=== PATIENT | male | born 1940 | race Caucasian/White ===

== ENCOUNTER 2024-03-05 09:36 | Outpatient (AMB) | payer MEDICARE, SELFPAY ==
--- NOTE | 2024-03-05 10:07 | MHC.OFFVIS ---
Vital Signs 03/05/24 10:08 Height 5 ft 3 in Weight 209 lb BMI 37.0 BP 148/88 H Blood Pressure Location Rt brachial Position Sitting Intake Visit Reasons: ENP: Tremors Intake Note: Patient presents for tremors Allergies No Known Allergies Allergy (Verified 03/05/24 10:09) Medication List - Last Reconciled 03/05/24 by Yessica Trejo MD carbidopa-levodopa 25-100 mg (Sinemet) 1 tab PO TID esomeprazole magnesium (Nexium) 20 mg PO DAILY lorazepam 0.5 mg PO DAILY kb-rvc-dcorr acid-lutein 400-250 mcg (Centrum Silver) 1 tab PO DAILY tramadol 50 mg PO DAILY PRN HPI Comments Details: 83y/o Right handed male comes for evaluation of tremors He started noticing tremor sin his right hand about 1 year ago both at rest , posture and action . The tremors were mild initially and intermittent but has worsened in intensity since then . He also has noticed some tremors in his left hand now. He also has difficulty with his hand writing dressing using utensils, showers etc due to poor coordination. His hand writing is smaller. His speech is softer and has drooling. He denies any memory issues. He has some vivid dreams and snoring. He denies depression but has anxiety and has been using lorazepam 0.5 mg qhs to help. 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 Denies nay major head injury He was seen by and started on Primidone but felt weak and dizzy after his first dose PFSH Medical History (Updated 03/05/24 @ 10:53 by Yessica Trejo MD) Hx of cardiac pacemaker Anxiety GERD (gastroesophageal reflux disease) HTN (hypertension) Social History (Updated 03/05/24 @ 10:10 by MARIKA hSi) Alcohol intake: never Patient Tobacco Use Status: Never used Tobacco Physical Exam Vital Signs: Last Vital Signs BP 148/88 H 03/05/24 10:08 BMI result Body Mass Index 37.0 Const General: cooperative, healthy appearing and comfortable Nutritional Appearance: obese Orientation/consciousness: patient oriented x3 Eyes Pupils: Equal, round and reactive pupils present Neck Neck: Yes no meningeal signs Neuro Other: Severely decreased facial expression and blink Speech- moderate hypophonia and dysprosody Rest tremors intermittent moderate right and mild on left Dg postural and action tremors Mild head tremors Fine finger movements - moderately decreased dg R>L Foot taps decreased dg R>L Cog wheel rigidity Right Ue 3 + Left UE 1+ Gait- slow , small steps decreased arm swings dg R>L Mallampatti grade4 General: patient oriented x3, moves all extremities, no meningeal signs and no focal motor deficits Cranial nerves: Yes Facial sensation intact/muscles of mastication intact, Yes Equal, round and reactive pupils present, Yes Bilaterally intact EOM present, Yes Nystagmus not present, Yes Normal facial strength present, Yes Midline tongue present and Yes Symmetric palate elevation present Cognition (Neuro): normal cognition Motor exam (neuro): 5/5 motor strength present throughout Deep tendon reflexes (DTR's): Right triceps reflex intensity grade: 1+, Left triceps reflex intensity grade: 1+, Rt Biceps (C5, C6): 1+, Left biceps reflex intensity grade: 1+, Right brachioradialis reflex intensity grade: 1+, Left brachioradialis reflex intensity grade: 1+, Right patellar reflex intensity grade: 1+ and Left patellar reflex intensity grade: 1+ Coordination: [id number] test normal Assessment & Plan Assessment & Plan (1) Parkinson's disease: Comment: Tremors, bradykinesia, rigidity, gait disturbance Code(s): G20.A1 - Parkinson's disease without dyskinesia, without mention of fluctuations Category: Medical Qualifiers: Dyskinesia presence: without dyskinesia Fluctuating manifestations: without fluctuating manifestations Qualified Code(s): G20.A1 - Parkinson's disease without dyskinesia, without mention of fluctuations Plan Discussed the diagnosis, management and prognosis with the patient I will trial him on carbidopa/levodopa 25/100 1/2 tab tid for 2 weeks and increase to 1 tab tid Home PT for gait training will consider home sleep test Patient has a pacemaker - will consider CT brain F/u 2 mths Medications: New carbidopa-levodopa 25-100 mg (Sinemet) start with 1/2 tab tid for 2 weeks then increase to 1 tab tid 1 tab PO TID 90 tabs 0RF Coding Level of Care Code New Pt Level 4 (40818) Complex EM visit Add On G2211 Diagnoses Parkinson's disease without dyskinesia or fluctuating manifestations G20.A1 Dyskinesia presence: without dyskinesia Fluctuating manifestations: without fluctuating manifestations
[2024-03-05 10:08] VITALS: BP 148/88; BMI 37.0
== END 2024-03-05 10:50 | disposition home or self-care (01) ==
PROVIDERS: PCP Internal Medicine; Visit Provider Psychiatry & Neurology Neurology
DX: G20.A1 Parkinson's disease without dyskinesia, without mention of fluctuations (principal)
CPT/HCPCS: 99204; G2211

== ENCOUNTER → 2024-03-05 09:36 | Outpatient (BNVA) | payer MEDICARE, SELFPAY | PROVIDERS: PCP Internal Medicine; Visit Provider Psychiatry & Neurology Neurology | DX: G20.A1 Parkinson's disease without dyskinesia, without mention of fluctuations (principal) | CPT/HCPCS: 99202 ==

== ENCOUNTER 2024-04-28 09:43 | Outpatient (AMB) | payer MEDICARE, SELFPAY ==
[2024-04-28 09:59] VITALS: BMI 36.0
--- NOTE | 2024-04-28 09:59 | A.OFFVIS_ITS ---
Vital Signs 04/28/24 09:59 Height 5 ft 3 in Weight 203 lb BMI 36.0 Intake Visit Reasons: follow up Tremors Intake Note: Patient presents for tremors Allergies No Known Allergies Allergy (Verified 04/28/24 10:00) Medication List - Last Reconciled 04/28/24 by Yessica Trejo MD carbidopa-levodopa 25-100 mg (Sinemet) 1 tab PO QID esomeprazole magnesium (Nexium) 20 mg PO DAILY lorazepam 0.5 mg PO DAILY ftnempeb-wmc-xnitt acid-lutein 400-250 mcg (Centrum Silver) 1 tab PO DAILY tramadol 50 mg PO DAILY PRN HPI Comments Details: 83y/o Right handed male comes for follow up.He was trialed on carbidopa/levodopa 25/100 tid . He feels there is some improvement . 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 History from initial visit- He started noticing tremors in his right hand about 1 year ago ( 2022)both at rest , posture and action . The tremors were mild initially and intermittent but has worsened in intensity since then . He also has noticed some tremors in his left hand now. He also has difficulty with his hand writing dressing using utensils, showers etc due to poor coordination. His hand writing is smaller. His speech is softer and has drooling. He denies any memory issues. He has some vivid dreams and snoring. He denies depression but has anxiety and has been using lorazepam 0.5 mg qhs to help. 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 Denies nay major head injury He was seen by and started on Primidone but felt weak and dizzy after his first dose PFSH Medical History Hx of cardiac pacemaker Anxiety GERD (gastroesophageal reflux disease) HTN (hypertension) Social History Alcohol intake: never Patient Tobacco Use Status: Never used Tobacco Physical Exam Vital Signs: BMI result Body Mass Index 36.0 Const General: cooperative, healthy appearing and comfortable Nutritional Appearance: obese Orientation/consciousness: patient oriented x3 Eyes Pupils: Equal, round and reactive pupils present Neck Neck: Yes no meningeal signs Neuro Other: MODERATE decreased facial expression and blink Speech- moderate hypophonia and dysprosody No tremors today Fine finger movements - moderately decreased tobin R>L Foot taps decreased tobin R>L Cog wheel rigidity Right Ue 2 + Left UE 1+ Gait- slow , normal steps decreased arm swings tobin R>L, better than last visit Mallampatti grade4- General: patient oriented x3, moves all extremities, no meningeal signs and no focal motor deficits Cranial nerves: Yes Facial sensation intact/muscles of mastication intact, Yes Equal, round and reactive pupils present, Yes Bilaterally intact EOM present, Yes Nystagmus not present, Yes Normal facial strength present, Yes Midline tongue present and Yes Symmetric palate elevation present Cognition (Neuro): normal cognition Motor exam (neuro): 5/5 motor strength present throughout Coordination: [id number] test normal Assessment & Plan Assessment & Plan (1) Parkinson's disease: Comment: Tremors, bradykinesia, rigidity, gait disturbance Code(s): G20.A1 - Parkinson's disease without dyskinesia, without mention of fluctuations Category: Medical Qualifiers: Dyskinesia presence: without dyskinesia Fluctuating manifestations: without fluctuating manifestations Qualified Code(s): G20.A1 - Parkinson's disease without dyskinesia, without mention of fluctuations Plan Increase carbidopa/levodopa 25/100 1 tab qid Declines PT and OT will consider home sleep test Patient has a pacemaker - will consider CT brain F/u 3 mths Medications: Changed From carbidopa-levodopa 25-100 mg (Sinemet) 1 tab PO TID 90 tabs 6RF To carbidopa-levodopa 25-100 mg (Sinemet) 1 tab PO QID 120 tabs 6RF Coding Level of Care Code Est Pt Level 4 (24495) Complex EM visit Add On G2211 Diagnoses Parkinson's disease without dyskinesia or fluctuating manifestations G20.A1 Dyskinesia presence: without dyskinesia Fluctuating manifestations: without fluctuating manifestations
== END 2024-04-28 10:23 | disposition home or self-care (01) ==
PROVIDERS: PCP Internal Medicine; Visit Provider Psychiatry & Neurology Neurology
DX: G20.A1 Parkinson's disease without dyskinesia, without mention of fluctuations (principal)
CPT/HCPCS: 99214; G2211

== ENCOUNTER → 2024-04-28 09:43 | Outpatient (BNVA) | payer MEDICARE, SELFPAY | PROVIDERS: PCP Internal Medicine; Visit Provider Psychiatry & Neurology Neurology | DX: G20.A1 Parkinson's disease without dyskinesia, without mention of fluctuations (principal) | CPT/HCPCS: 99212 ==

== ENCOUNTER 2024-09-08 10:15 | Outpatient (AMB) | payer MEDICARE, SELFPAY ==
--- NOTE | 2024-09-08 10:20 | MHC.OFFVIS ---
Vital Signs 09/08/24 10:21 Height 5 ft 3 in Weight 205 lb BMI 36.3 BP 128/72 Blood Pressure Location Rt brachial Position Sitting Intake Visit Reasons: 4 mo follow up-Conf Intake Note: Patient following up for med increase carb-levodopa. Allergies No Known Allergies Allergy (Verified 09/08/24 10:23) Medication List - Last Reconciled 09/08/24 by Yessica Trejo MD carbidopa-levodopa 25-100 mg (Sinemet) 1 tab PO QID esomeprazole magnesium (Nexium) 20 mg PO DAILY lorazepam 0.5 mg PO DAILY aljtlylb-uxq-sstut acid-lutein 400-250 mcg (Centrum Silver) 1 tab PO DAILY tramadol 50 mg PO DAILY PRN HPI Comments Details: 84y/o Right handed male comes for follow up.He is on carbidopa/levodopa 25/100 qid . He feels there is some improvement . No side effects from carbidopa/levodopa .He had 1 fall last month while coming up the stairs- did not lift . He is scheduled for knee replacement next month.He feels slower and his voice is worse. he reports vivid dreams . He denies sleep talking No hallucinations.Dreams does not bother him History from initial visit- He started noticing tremors in his right hand about 1 year ago ( 2022)both at rest , posture and action . The tremors were mild initially and intermittent but has worsened in intensity since then . He also has noticed some tremors in his left hand now. He also has difficulty with his hand writing dressing using utensils, showers etc due to poor coordination. His hand writing is smaller. His speech is softer and has drooling. He denies any memory issues. He has some vivid dreams and snoring. He denies depression but has anxiety and has been using lorazepam 0.5 mg qhs to help. 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 Denies nay major head injury He was seen by and started on Primidone but felt weak and dizzy after his first dose [facility] Medical History Hx of cardiac pacemaker Anxiety GERD (gastroesophageal reflux disease) HTN (hypertension) Social History Alcohol intake: never Patient Tobacco Use Status: Never used Tobacco Physical Exam Vital Signs: Last Vital Signs BP 128/72 09/08/24 10:21 BMI result Body Mass Index 36.3 Const General: cooperative, healthy appearing and comfortable Nutritional Appearance: obese Orientation/consciousness: patient oriented x3 Eyes Pupils: Equal, round and reactive pupils present Neck Neck: Yes no meningeal signs Neuro Other: MODERATE decreased facial expression and blink Speech- moderate hypophonia and dysprosody No tremors today Fine finger movements - moderately decreased tobin R>L Foot taps decreased tobin R>L Cog wheel rigidity Right Ue 2 + Left UE 1+ Gait- slow , normal steps decreased arm swings tobin R>L, better than last visit Mallampatti grade4- General: patient oriented x3, moves all extremities, no meningeal signs and no focal motor deficits Cranial nerves: Yes Facial sensation intact/muscles of mastication intact, Yes Equal, round and reactive pupils present, Yes Bilaterally intact EOM present, Yes Nystagmus not present, Yes Normal facial strength present, Yes Midline tongue present and Yes Symmetric palate elevation present Cognition (Neuro): normal cognition Motor exam (neuro): 5/5 motor strength present throughout Coordination: [id number] test normal Assessment & Plan Assessment & Plan (1) Parkinson's disease: Comment: Tremors, bradykinesia, rigidity, gait disturbance Code(s): G20.A1 - Parkinson's disease without dyskinesia, without mention of fluctuations Category: Medical Qualifiers: Dyskinesia presence: without dyskinesia Fluctuating manifestations: without fluctuating manifestations Qualified Code(s): G20.A1 - Parkinson's disease without dyskinesia, without mention of fluctuations Plan Increase carbidopa/levodopa 25/100 1 1/2 tab qid Declines PT and OT Patient has a pacemaker - will consider CT brain F/u 3 mths Medications: Changed From carbidopa-levodopa 25-100 mg (Sinemet) 1 tab PO QID 120 tabs 6RF To carbidopa-levodopa 25-100 mg (Sinemet) 1.5 tabs PO QID 180 tabs 6RF Coding Level of Care Code Est Pt Level 4 (11912) Complex EM visit Add On G2211 Diagnoses Parkinson's disease without dyskinesia or fluctuating manifestations G20.A1 Dyskinesia presence: without dyskinesia Fluctuating manifestations: without fluctuating manifestations
[2024-09-08 10:21] VITALS: BP 128/72; BMI 36.3
--- OUTSIDE RECORDS SUMMARY | 2024-09-08 11:57 | XMS_ITS | Clinical Summary ---
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 Active IBUPROFEN ORAL Take 1 Tablet by mouth as needed. Active albuterol HFA (PROAIR HFA ; PROVENTIL HFA ; VENTOLIN HFA) 90 mcg/actuation inhaler Inhale 2 Puffs into the lungs 4 times daily as needed for Cough, Wheezing or Shortness of Breath. 1 Active esomeprazole (NexIUM) [address] capsule Take 1 Cap by mouth every morning (before breakfast). 0 Active aspirin 81 mg EC tablet Take 2 Tabs by mouth daily. 3 Active folic acid/multivit-m in/lutein (CENTRUM SILVER ORAL) Take 1 Tab by mouth daily. 7 Active LORazepam (ATIVAN) 0.5 mg tablet Take 1 tablet (0.5 mg total) by mouth 1 (one) time each day if needed for anxiety. Max Daily Amount: 0.5 mg 28 tablet 5 Active carbidopa-levod opa (SINEMET) 25-250 mg per tablet Take 1 tablet by mouth 3 (three) times a day. Active traMADoL (ULTRAM) 50 mg tablet Take 1 tablet (50 mg total) by mouth 1 (one) time each day if needed for severe pain. Take 1 Tablet by mouth daily as needed for Pain for up to 28 days Max Daily Amount: 50 mg 28 tablet 5 Active traMADoL (ULTRAM) 50 mg tablet Take 1 tablet (50 mg total) by mouth 1 (one) time each day if needed for severe pain. Take 1 Tablet by mouth daily as needed for Pain for up to 28 days Max Daily Amount: 50 mg 28 tablet 5 08/25/19 25 Discontinu ed(Reorder ) Active Problems Problem Noted Date Diagnosed Date Parkinson's disease ([facility] V24, [facility] V28) 0 07/14/2024 Status post total left knee replacement 07/14/19 25 S/P placement of cardiac pacemaker 07/14/2024 Morbid obesity with BMI of 4 0.0-44.9, adult ([facility] V24, [facility] V28) 02/25/2024 Activity intolerance 02/04/2023 Other fatigue 02/04/2023 Second degree AV block 02/04/2023 Overview (02/25/2024): Last Assessment & Plan: This 82-year-old gentleman has symptomatic nonreversible bradycardia from predominantly second-degree AV block with periods of complete heart block and escape rhythm. I went through the pros and cons of pacemaker implantation. He is currently still driving and a was emphatic that he would have significant danger to continue driving and physical activity without pacemaker placed. I went through the procedure with him and his daughter. He understands small risk of device infection, hematoma formation pneumothorax or cardiac perforation. He is in agreement to proceed. I will try and place a left bundle area pacemaker system (dual-chamber). I did review the different technologies including leadless and pacemakers with leads and we agreed that to maintain atrial synchrony the dual-chamber standard pacemaker was best. Hyperlipidemia 05/06/2022 Overview (02/25/2024): Last Assessment & Plan: Patient's last LDL was acceptable at 100 on 01/16/23. I have reviewed with the patient the importance of a heart healthy lifestyle which includes eating a low-fat low- salt diet, getting regular exercise, maintaining a healthy weight, not smoking, and following up with routine medical care. Abnormal ECG 01/07/2022 Overview (02/25/2024): Last Assessment & Plan: We did discuss his EKG which is abnormal. Sinus rhythm with first-degree AV block. We also noted that there is an inferior infarction pattern. He will be getting an echo, stress test and Holter which will help to further delineate these findings. Dyspnea on exertion 01/07/2022 Overview (02/25/2024): Last Assessment & Plan: I we did discuss his dyspnea. Its not completely clear what the etiology of this is. I have asked him to undergo stress testing as well as have an echocardiogram. This will allow us to rule out any structural abnormality as a cause for his symptoms. Again we did discuss that his EKG showed an old inferior infarction. Again we will be doing a stress test to rule out coronary artery disease as a potential cause of his symptoms. Murmur 01/07/2022 Overview (02/25/2024): Last Assessment & Plan: The patient does have a murmur noted on exam; this is not new as Dr. Burrell had noticed that as well in 12/2021. His echocardiogram completed 02/05/2022 showed no hemodynamically significant valve disease. We will repeat another echocardiogram given his exertional symptoms in combination with his worsening AV block. Bradycardia 01/02/2022 Overview (02/25/2024): Last Assessment & Plan: Patient with a history of first-degree heart block and intermittent second- degree heart block. His 24-hour Holter monitor showed normal sinus rhythm with first- degree AV block with episodes of second-degree AV block type I and type II. He has declined an EP consult for consideration of pacemaker in the past and continues to, and we will continue to monitor this and his symptoms. He reports mild shortness of breath with significant exertion which is not new for him. His echocardiogram showed normal LVEF of 55 to 60% and no significant valve disease. Fall 01/02/2022 Right cervical radiculopathy 10/23/2018 Hypertension 01/27/2018 Overview (02/25/2024): Last Assessment & Plan: The patient's blood pressure is currently well controlled on lisinopril; continue current plan. Primary osteoarthritis of right knee 01/27/2018 Tremor, essential 07/18/2017 Devine's esophagus 06/13/2017 Degenerative arthritis of lumbar spine 8 Nocturia 06/13/2017 First degree atrioventricular block 08/14/2016 Benign prostatic hyperplasia 07/09/2016 Asthma 01/30/2016 Insomnia 05/10/2015 Anxiety 07/29/2014 Obesity (BMI 30.0-34.9) Resolved Problems Problem Noted Date Diagnosed Date Resolved Date Contusion of face 01/02/2022 04/07/2024 Overview (02/25/2024): Left, abrasion Encounters Date Type Department Care Team Description 08/24/2024 2:45 PM EDT Ancillary Procedure [facility] - [facility] [address] [place] [address] 08/20/2024 6:20 PM EDT Ancillary Procedure [facility] - [facility] [address] [place] [address] 08/05/2024 10:00 AM EDT Ancillary Procedure [facility] - [facility] [address] [place] [address] Encounter for adjustment or management of cardiac device 08/05/2024 Telephone [facility] [address] [place] [address] Bryanna Hernandez MA 07/26/2024 Telephone [facility] - [facility] [address] [place] [address] Julio Kevin MD Pre-op Visit 07/22/2024 11:00 AM EST Office Visit Internal Medicine - [place] [address] [facility] [address] [place] [address] Debi Boss PA Arthritis involving multiple sites (Primary Dx); Primary hypertension; Bradycardia; Anxiety; Obesity (BMI 30.0-34.9); Parkinson's disease, unspecified whether dyskinesia present, unspecified whether manifestations fluctuate (CMS/HCC V24, CMS/HCC V28) 07/21/2024 Lab Requisition [facility] - Main Lab [address] [facility] [place] [address] Rainer Delarosa MD Personal history of malignant neoplasm of bladder 07/20/2024 Telephone Orthopedic Surgery [facility] [address] [phone] Alise Mcneil MA Surgery 07/14/2024 11:00 AM EST Consult Orthopedic Surgery [facility] [address] [phone] Willam Sargent MD Post-traumatic osteoarthritis of right knee (Primary Dx); Arthritis of right knee; Parkinson's disease, unspecified whether dyskinesia present, unspecified whether manifestations fluctuate (CMS/HCC V24, CMS/HCC V28); Status post total left knee replacement; S/P placement of cardiac pacemaker 06/25/2024 Telephone Internal Medicine - [place] 175 [facility] [address] [place] [address] Debi Boss PA Referral (Ortho - Right knee) from Last 3 Months Immunizations Name Administration Dates Next Due Pneumococcal conjugate 13 va lent (Prevnar 13, PCV13) 2mo and older 07/09/2016 Surgical History Surgery Date Site/Laterality Comments TOTAL KNEE ARTHROPLASTY -2015 Left PROCEDURE: HISTORICAL TOTAL KNEE REPLACE; COMMENT: Dr. Nguyen KNEE SURGERY Bilateral PROCEDURE: HISTORICAL KNEE SURGERY; COMMENT: torn meniscus, bilat TURP / TRANSURETHRAL INCISIO N / DRAINAGE PROSTATE 06/22/2015 PROCEDURE: HISTORICAL TURP; COMMENT: hx prostate ca COLONOSCOPY 11/09/2012 PROCEDURE: HISTORICAL COLONOSCOPY; COMMENT: polypectomy anus x 1 - repeat 5 years CATARACT EXTRACTION Bilateral PROCEDURE: HISTORICAL CATARACT REMOVAL COLONOSCOPY 04/14/2017 PROCEDURE: HISTORICAL COLONOSCOPY; COMMENT: repeat 5 years Medical History Medical History Date Comments Tremor, essential 07/18/2017 DX:Tremor, ess ential Osteoarthritis of both knees 01/27/2018 DX: Osteoarthritis of both knees Morbid obesity with BMI of 4 0.0-44.9, adult ([facility] V24, [facility] V28) 06/13/2017 DX:Morbid obesity wit h BMI of 40.0-44.9, adult ([facility]) Insomnia 05/10/2015 DX:Insomnia Hypertension 01/27/2018 DX:Hypertension H/O total knee replacement, left 01/27/2018 DX:H/O total knee replacement, left First degree atrioventricular block 08/14/2016 DX:First degree atrioventricular block Devine's esophagus 06/13/2017 DX:Devine's esophagus; COMMENT: f/u GI Dr. 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 [facility] 04/02/2018 cystoscopy, no evidence of recurrence. Obesity (BMI 30.0-34.9) Parkinson's disease ([facility] V24, [facility] V28) Family History Medical History Relation Name Comments Other: Other Maternal Grandfather Diabetes Mother Hypertension Mother Other cancer Mother Asthma Paternal Grandfather Heart attack Paternal Grandmother Relation Name Status Comments Father Maternal Grandfather Mother Paternal Grandfather Paternal Grandmother Social History Tobacco Use Types Packs/Day Years Used Date Smoking Tobacco: Former Cigarettes 1 38 0 07/28/1958 - 07/28/1996 Smokeless Tobacco: Never Alcohol Use Standard Drinks/Week Comments Not Currently 0 (1 standard drink = 0.6 oz pur e alcohol) Sex and Gender Information Value Date Recorded Sex Assigned at Not on file Legal Sex Male 6:48 PM EST Gender Identity Not on file Sexual Orientation Not on file Obstetrics History Last Filed Vital Signs Vital Sign Reading Time Taken Comments Blood Pressure 128/79 07/22/2024 11:14 AM EST Pulse 70 07/22/2024 11:14 AM EST Temperature 36.7 ??C (98 ??F) 07/22/2024 11:14 AM EST Respiratory Rate - - Oxygen Saturation 95% 07/22/2024 11:14 AM EST Inhaled Oxygen Concentration - - Weight 89.4 kg (197 lb) 07/22/2024 11:14 AM EST Height 160 cm (5' 3 ) 07/22/2024 11:14 AM EST Body Mass Index 34.9 07/22/2024 11:14 AM EST Plan of Treatment Upcoming Encounters Date Type Department Care Team (Latest Contact Info) Description 09/17/2024 11:15 AM EDT Consult Internal Medicine - [place] [address] [phone] Debi Boss PA [address] [address] 09/21/2024 12:40 PM EDT Consult [facility] - [address] [place] [phone] Nyla Truong NP [address] [place] [address] 09/29/2024 11:00 AM EDT Consult Orthopedic Surgery - [place] [address] [phone] Rosanna Dejesus NP [address] [address] 10/12/2024 10:30 AM EDT Hospital Encounter [facility] Main [place] [address] [place] [phone] Willam Sargent MD [address] [address] 10/12/2024 10:30 AM EDT - 10/12/2024 1:00 PM EDT Surgery [facility] Main OR [address] [place] [phone] Willam Sargent MD 175 [facility] 250 [place] [address] RIGHT TOTAL KNEE ARTHROPLASTY [[id number] (CPT??)] 10/27/2024 2:30 PM EDT Office Visit Orthopedic Surgery - [place] 250 [address] [facility] 250 [place] [phone] Willam Sargent MD 175 [facility] 250 [place] [address] 08/08/2025 10:30 AM EDT Ancillary Procedure [facility] - [facility] 154 [address] [facility] 154 [place] [phone] Scheduled Procedures Name Priority Associated Diagnoses Date/Ti me ARTHROPLASTY KNEE TOTAL Post-traumatic osteoarthritis of right knee 10/12/2024 10:30 AM EDT Health Maintenance Due Date Last Done Comments COVID-19 Vaccine (#1) 1945 DTaP,Tdap,and Td Vaccines (1 - Tdap) 1960 Zoster Vaccines (1 of 2) 1960 RSV Immunization Adult Patients (1 - 1-dose 75+ series) 2016 Pneumococcal Vaccine: 50+ Years (2 of 2 - PPSV23) 09/03/2016 07/09/2016 Colorectal Cancer Screening: Colonoscopy 04/27/2022 04/14/2017 Social Influencers of Health Screening 04/27/2022 Depression Screening 2024 08/18/2023 Falls Risk Assessment 2024 08/18/2023 Medicare Annual Wellness Visit 2024 08/18/2023 Hypertension/CHF/CAD Annual BMP Blood Test 01/01/2025 01/02/2024, 01/02/2024 Influenza Vaccine (Season Ended) 2025 Cholesterol Screening (Lipid Panel) 01/01/2029 01/02/2024, 01/02/2024 HIB Vaccines Aged Out No longer eligi ble based on patient's age to complete this topic HPV Vaccines Aged Out No longer eligi ble based on patient's age to complete this topic Hepatitis A Vaccines Aged Out No long er eligible based on patient's age to complete this topic Hepatitis B Vaccines Aged Out No long er eligible based on patient's age to complete this topic IPV Vaccines Aged Out No longer eligi ble based on patient's age to complete this topic MMR Vaccines Aged Out No longer eligi ble based on patient's age to complete this topic Meningococcal ACWY Vaccine Aged Out N o longer eligible based on patient's age to complete this topic Meningococcal B Vaccine Aged Out No l onger eligible based on patient's age to complete this topic RSV Immunization Patients Under 20 months Aged Out No longer eligible b ased on patient's age to complete this topic Varicella Vaccines Aged Out No longer eligible based on patient's age to complete this topic Medical Devices Implanted Type Area Fish Tender Device Identifier Shelf Expiration Date Model / Serial / Lot Joi 2272 Assurity Mri(Tm) [id number] Implanted: (Quantity not on file) Cardiac Pacemaker [facility] [employer] 2272 ASSURITY MRI(TM) / [id number] / Procedures Procedure Name Priority Date/Time Associated Diagnosis Comments CARDIAC DEVICE CHECK- REMOTE- MURJ Routine 08/24/2024 2:43 PM EDT CARDIAC DEVICE CHECK- REMOTE- MURJ Routine 08/20/2024 6:18 PM EDT CARDIAC DEVICE CHECK- IN CLINIC- MURJ Routine 08/05/2024 10:13 AM EDT Encounter for adjustment or management of cardiac device AP OUTSIDE CONSULT Routine 07/15/2024 12 :00 AM EST Personal history of malignant neoplasm of bladder XR KNEE 4+ VIEWS RIGHT Routine 07/14/2024 10:48 AM EST Arthritis of right knee Post-traumatic osteoarthritis of right knee ANNUAL BMP BLOOD TEST Routine 01/02/2024 LIPID PANEL Routine 01/02/2024 DEPRESSION SCREENING Routine 08/18/2023 FALLS RISK ASSESSMENT Routine 08/18/2023 HM COLONOSCOPY Routine 04/14/2017 from Last 3 Months or Most Recently Relevant to Health Maintenance Results * Cardiac device check - Remote- MURJ (08/24/2024 2:43 PM EDT) Only the most recent of2 resultswithin the time period is included. Date Time Interrogation Session [id number] CV DEVICE CHECK Type Interrogation Session Remote Scheduled CV DEVICE CHECK Implantable Pulse Generator Fish Tender St[employer] CV DEVICE CHECK Implantable Pulse Generator Type IPG CV DEVICE CHECK Implantable Pulse Generator Model 2272 Assurity MRI(TM) CV DEVICE CHECK Implantable Pulse Generator Serial Number [id number] CV DEVICE CHECK Implantable Pulse Generator Implant Date 20230711 CV DEVICE CHECK Battery Remaining Percentage 90.00 CV DEVICE CHECK Battery Remaining Longevity 108.0 CV DEVICE CHECK Battery Voltage 2.990 CV D EVICE CHECK Battery DENTAL APPLIANCE REPAIRER Trigger 2.600 CV DEVICE CHECK Battery Status Middle of Service CV DEVICE CHECK José Miguel Statistic RA Percent Paced 14.00 CV DEVICE CHECK José Miguel Statistic RV Percent Paced 99.00 CV DEVICE CHECK Atrial Tachy Statistic AT/AF Gardner Percent 0.00 CV DEVICE CHECK Lead Channel Sensing Intrinsic Amplitude 4.500 CV DEVICE CHECK Lead Channel Setting Sensing Sensitivity 0.30 CV DEVICE CHECK Lead Channel Impedance Value 530 CV DEVICE CHECK Lead Channel Pacing Threshold Amplitude 0.875 CV DEVICE CHECK Lead Channel Pacing Threshold Pulse Width 0.4 CV DEVICE CHECK Lead Channel RA Pacing Threshold Date 2024 CV DEVICE CHECK Lead Channel Setting Pacing Amplitude 1.875 CV DEVICE CHECK Lead Channel Setting Pacing Pulse Width 0.4 CV DEVICE CHECK Lead Channel Sensing Intrinsic Amplitude 9.200 CV DEVICE CHECK Lead Channel Setting Sensing Sensitivity 0.50 CV DEVICE CHECK Lead Channel Impedance Value 380 CV DEVICE CHECK Lead Channel Pacing Threshold Amplitude 1.000 CV DEVICE CHECK Lead Channel Pacing Threshold Pulse Width 0.4 CV DEVICE CHECK Lead Channel RV Pacing Threshold Date 2024 CV DEVICE CHECK Lead Channel Setting Pacing Amplitude 1.250 CV DEVICE CHECK Lead Channel Setting Pacing Pulse Width 0.4 CV DEVICE CHECK José Miguel Setting Mode (NBG Code) DDDR CV DEVICE CHECK José Miguel Setting Lower Rate Limit 60 CV DEVICE CHECK José Miguel Setting AT Mode Switch Rate 180 CV DEVICE CHECK José Miguel Setting Maximum Tracking Rate 140 CV DEVICE CHECK José Miguel Setting Maximum Sensor Rate 140 CV DEVICE CHECK José Miguel Setting PAV Delay 180 CV DEVICE CHECK José Miguel Setting ISH Delay 130 CV DEVICE CHECK Date of Service 2024-08-27 CV DEVICE CHECK Anatomical Region Laterality Modality Device Interroga tion 2024 3:04 AM EDT Impressions 08/24/2024 2:31 PM EDT Normal Remote: No Events * Normal Device Function * Alerts or events: None * Battery: Battery is at 90%, 9.00 yrs * Sensing, impedance and thresholds reviewed * Programmed parameters reviewed * Presenting rhythm reviewed * Heart Rate Histograms reviewed * No significant changes noted Narrative Procedure Note Julio Kevin MD - 08/24/2024 IMPRESSION: Normal Remote: No Events * Normal Device Function * Alerts or events: None * Battery: Battery is at 90%, 9.00 yrs * Sensing, impedance and thresholds reviewed * Programmed parameters reviewed * Presenting rhythm reviewed * Heart Rate Histograms reviewed * No significant changes noted Julio Kevin MD CV IMPLANTABLE CARDIAC DEVICE PROCEDURES Final Result * CARDIAC DEVICE CHECK- [facility] (08/05/2024 10:13 AM EDT) Date Time Interrogation Session [id number] CV DEVICE CHECK Implantable Pulse Generator Fish Tender St[employer]Uday CV DEVICE CHECK Implantable Pulse Generator Type IPG CV DEVICE CHECK Implantable Pulse Generator Model 2272 Assurity MRI(TM) CV DEVICE CHECK Implantable Pulse Generator Serial Number [id number] CV DEVICE CHECK Implantable Pulse Generator Implant Date 20230711 CV DEVICE CHECK Battery Status Middle of Service CV DEVICE CHECK José Miguel Statistic RA Percent Paced 16.00 CV DEVICE CHECK José Miguel Statistic RV Percent Paced 99.00 CV DEVICE CHECK Atrial Tachy Statistic AT/AF Gardner Percent 0.00 CV DEVICE CHECK Lead Channel Sensing Intrinsic Amplitude 5.000 CV DEVICE CHECK Lead Channel Setting Sensing Sensitivity 0.30 CV DEVICE CHECK Lead Channel Impedance Value 530 CV DEVICE CHECK Lead Channel Pacing Threshold Amplitude 1.000 CV DEVICE CHECK Lead Channel Pacing Threshold Pulse Width 0.4 CV DEVICE CHECK Lead Channel RA Pacing Threshold Date 2024-05-18 CV DEVICE CHECK Lead Channel Setting Pacing Amplitude 1.750 CV DEVICE CHECK Lead Channel Setting Pacing Pulse Width 0.4 CV DEVICE CHECK Lead Channel Sensing Intrinsic Amplitude 9.200 CV DEVICE CHECK Lead Channel Setting Sensing Sensitivity 0.50 CV DEVICE CHECK Lead Channel Impedance Value 380 CV DEVICE CHECK Lead Channel Pacing Threshold Amplitude 1.000 CV DEVICE CHECK Lead Channel Pacing Threshold Pulse Width 0.4 CV DEVICE CHECK Lead Channel RV Pacing Threshold Date 2024-05-18 CV DEVICE CHECK Lead Channel Setting Pacing Amplitude 1.380 CV DEVICE CHECK Lead Channel Setting Pacing Pulse Width 0.4 CV DEVICE CHECK José Miguel Setting Mode (NBG Code) DDDR CV DEVICE CHECK José Miguel Setting Lower Rate Limit 60 CV DEVICE CHECK José Miguel Setting AT Mode Switch Rate 180 CV DEVICE CHECK José Miguel Setting Maximum Tracking Rate 140 CV DEVICE CHECK José Miguel Setting Maximum Sensor Rate 140 CV DEVICE CHECK José Miguel Setting PAV Delay 180 CV DEVICE CHECK José Miguel Setting ISH Delay 130 CV DEVICE CHECK Date of Service 2024-08-15 CV DEVICE CHECK Anatomical Region Laterality Modality Device Interroga tion 08/05/2024 Impressions 08/09/2024 5:26 PM EDT Normal In-Office: With Events * Normal Device Function * Events or Alerts: 1 new AMS alert, EGM suggestive of 6 seconds AF, history of brief AF events under 30 seconds, no OAC. * Battery: MOS, 8.9 years * Sensing, impedance and thresholds reviewed and tested * Presenting Rhythm: AP-WAREHOUSE SUPERVISOR 70s * Underlying Rhythm: CHB VS 38 bpm * Heart Rate Histograms reviewed * Pacing and Detection Parameters were evaluated Narrative Procedure Note Julio Kevin MD - 08/09/2024 IMPRESSION: Normal In-Office: With Events * Normal Device Function * Events or Alerts: 1 new AMS alert, EGM suggestive of 6 seconds AF,history of brief AF events under 30 seconds, no OAC. * Battery: MOS, 8.9 years * Sensing, impedance and thresholds reviewed and tested * Presenting Rhythm: AP-WAREHOUSE SUPERVISOR 70s * Underlying Rhythm: CHB VS 38 bpm * Heart Rate Histograms reviewed * Pacing and Detection Parameters were evaluated us Order Referral Cardiovascular CV IMPLANTABLE CAR DIAC DEVICE PROCEDURES Final Result * Anatomic pathology outside consult (07/15/2024 12:00 AM EST) Final Diagnosis A. Urine, Voided, ([id number]): Negative for high grade urothelial carcinoma. Results of Uro[employer] fluorescence in situ hybridization (FISH) testing: CEP3: Normal CEP7: Normal CEP17: Normal LSI 9p21: Normal Interpretation: Normal profile Controls stained appropriately. Note: The results are intended as a screening device and should be interpreted in association with other clinical and pathological findings. 07/29/2024 5:37 PM EDT [facility] Clinical Information History of bladder neoplasm (malignant) Z85.51 Urine Cytology/FISH (now) 07/29/2024 5:37 PM EDT [facility] Gross Description A. Urine, Voided, ([id number]): Received one ThinPrep slide for cytology and one ThinPrep slide for U[employer] FISH 07/29/2024 5:37 PM EDT [facility] Disclaimer Unless otherwise specified, all tissue is 10% NB formalin fixed and paraffin embedded. Technical pathology services provided by [facility] Urology at [address] [facility] [address] [address] (CLIA #[id number]/Tiarra Azevedo MD, Tobacco Shaker) 07/29/2024 5:37 PM EDT [facility] Tissue Urine specimen from urethra / Unknown 07/15/2024 07/21/2024 1:42 PM EST Rainer Delarosa MD LAB PATHOLOGY ORDERABLES Final Result [facility] [address] [place] [address], * XR Knee 4+ Views Right (07/14/2024 10:48 AM EST) Anatomical Region Laterality Modality Lower Extremities, Knee Right Computed Radiography Narrative 07/16/2024 10:23 AM EST 4 views weightbearing of the right knee obtained today including AP, Gallegos, lateral, sunrise were reviewed. These show severe degenerative changes involving the medial compartment including complete joint space narrowing, moderate marginal space, subchondral sclerosis. Mild to moderate degenerative change involving lateral compartment, and moderate to severe degenerative change involving patellofemoral compartment. Small effusion. 5 degree tibial varus. AP and Gallegos view of the left knee show cemented total knee replacement with implants that appear well-fixed well position. Result [facility] Willam Sargent MD IMG XR PROCEDURES Fin al Result * Annual BMP Blood Test (01/02/2024) [facility] Annual BMP Blood Test abstracted Result [facility] Provider HEALTH MAINTENANCE Final Result * (ABNORMAL) Lipid panel (01/02/2024) [facility] LDL/HDL Ratio 4 0 - 4 Triglycerides 144 0 - 150 mg/dL Cholesterol 203(A) 0 - 200 mg/dL HDL 51 >=40 mg/dL LDL Cholesterol 124(A) 0 - 100 mg/dL Blood Venous blood specimen / Unknown Result [facility] Provider LAB BLOOD ORDERABLES Alice l Result * Falls Risk Assessment (08/18/2023) [facility] Falls Risk Assessment abstracted Result [facility] access hospital HEALTH MAINTENANCE Final Result * Depression Screening (08/18/2023) [facility] Depression Screening abstracted Result [facility] Provider HEALTH MAINTENANCE Final Result * Colonoscopy (04/14/2017) [facility] Colonoscopy no interpretation , abstracted Anatomical Region Laterality Modality Other Result [facility] Provider HEALTH MAINTENANCE Final Result from Last 3 Months or Most Recently Relevant to Health Maintenance Insurance MEDICARE [facility] Advance Directives Documents on File Type Date Recorded 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
--- OUTSIDE RECORDS SUMMARY | 2024-09-08 11:57 | XMS_ITS | Encounter Summary ---
Author Organization [facility] Address [address] [place] [address] Care Team Providers Care Balling Head Tender Name Role Phone Debi Boss Primary Care Provider + Encounter Details Date Type Department Care Team (Late st Contact Info) Description 07/21/2024 Lab Requisition [facility] - Main Lab [address] [facility] [place] [address] Rainer Delarosa MD [address] [facility] [address] [place] [address] Personal history of malignant neoplasm of bladder Social History Tobacco Use Types Packs/Day Years [...] on file Sexual Orientation Not on file documented as of this encounter Plan of Treatment Upcoming Encounters Date Type Department Care Team (Latest Contact Info) Description 09/17/2024 11:15 AM EDT Consult Internal Medicine - [place] [address] [place] [address] Debi Boss PA 175 [facility] [address] [place] [address] 09/21/2024 12:[address] [facility] - [facility] [address] [place] [address] Nyla Truong NP 2 [facility] [address] [address] [place] [address] 09/29/2024 11:00 AM EDT Consult Orthopedic Surgery [place] [address] [phone] Rosanna Dejesus NP [address] [address] 10/12/2024 10:30 AM EDT Hospital Encounter [facility] [address] [place] [address] [place] [phone] Willam Sargent MD [address] [address] 10/12/2024 10:30 AM EDT - 10/12/2024 1:00 PM EDT Surgery [facility] Main [place] [address] [place] [phone] Willam Sargent MD [address] [address] RIGHT TOTAL KNEE ARTHROPLASTY [[id number] (CPT??)] 10/27/2024 2:30 PM EDT Office Visit Orthopedic Surgery [place] [address] [phone] Willam Sargent MD [address] [address] 08/08/2025 10:30 AM EDT Ancillary Procedure [facility] - [facility] [address] [facility] [address] [place] [phone] Scheduled Procedures Name Priority Associated Diagnoses Date/Ti me ARTHROPLASTY KNEE TOTAL Post-traumatic osteoarthritis of right knee 10/12/2024 10:30 AM EDT documented as of this encounter Procedures Procedure Name Priority Date/Time Associated Diagnosis Comments AP OUTSIDE CONSULT Routine 07/15/2024 12 :00 AM EST Personal history of malignant neoplasm of bladder documented in this encounter Results * Anatomic pathology outside consult (07/15/2024 12:00 AM EST) Final Diagnosis A. Urine, Voided, ([id number]): Negative for high grade urothelial carcinoma. Results of Uro[employer]ion fluorescence in situ hybridization (FISH) testing: CEP3: Normal CEP7: Normal CEP17: Normal LSI 9p21: Normal Interpretation: Normal profile Controls stained appropriately. Note: The results are intended as a screening device and should be interpreted in association with other clinical and pathological findings. 07/29/2024 5:[address] [facility] Clinical Information History of bladder neoplasm (malignant) Z85.51 Urine Cytology/FISH (now) 07/29/2024 5:[address] [facility] Gross Description A. Urine, Voided, ([id number]): Received one ThinPrep slide for cytology and one ThinPrep slide for UroVysion FISH 07/29/2024 5:[address] [facility] Disclaimer Unless otherwise specified, all tissue is 10% NB formalin fixed and paraffin embedded. Technical pathology services provided by [facility] at [address], [place] [address] (CLIA #[id number]/Tiarra Azevedo MD, Manager Of Procurement) 07/29/2024 5:[address] [facility] Tissue Urine specimen from urethra / Unknown 07/15/2024 07/21/2024 1:42 PM EST Rainer Delarosa MD LAB PATHOLOGY ORDERABLES Final Result [facility] LAB [address] [place] [address], documented in this encounter Visit Diagnoses Diagnosis Primary osteoarthritis of right knee- Primary Personal history of malignant neoplasm of bladder Post-traumatic osteoarthritis of right knee Encounter for adjustment or management of cardiac device documented in this encounter Care Teams Balling Head Tender Relationship Specialty Start Date End Date Debi Boss PA 175 [facility] [address] [place] [address] PCP - General Internal Medicine 07/01/19 documented as of this encounter
--- OUTSIDE RECORDS SUMMARY | 2024-09-08 11:57 | XMS_ITS | Clinical Summary ---
Author Organization [facility] Address [address] [place] [address] Care Team Providers Care City Alderman Name Role Phone Unavailable Primary Care Provider Unavailabl e Social History Tobacco Use Types Packs/Day Years Used Date Smoking Tobacco: Never Assessed Sex and Gender Information Value Date Recorded Sex Assigned at Not on file Gender Identity Not on file Sexual Orientation Not on file Plan of Treatment Not on file
== END 2024-09-08 10:49 | disposition home or self-care (01) ==
LOC: HO.HSMS 10:16
PROVIDERS: PCP Internal Medicine; Visit Provider Psychiatry & Neurology Neurology
DX: G20.A1 Parkinson's disease without dyskinesia, without mention of fluctuations (principal)
CPT/HCPCS: 99214; G2211

== ENCOUNTER → 2024-09-08 10:15 | Outpatient (BNVA) | payer MEDICARE, SELFPAY | PROVIDERS: PCP Internal Medicine; Visit Provider Psychiatry & Neurology Neurology | DX: G20.A1 Parkinson's disease without dyskinesia, without mention of fluctuations (principal) | CPT/HCPCS: 99212 ==

== ENCOUNTER 2025-01-03 09:52 | Outpatient (AMB) | payer MEDICARE, SELFPAY ==
[2025-01-03 09:53] VITALS: BP 136/80; PULSE 75; O2SAT 97; BMI 35.1
--- NOTE | 2025-01-03 09:53 | A.OFFVIS_ITS ---
Vital Signs 01/03/25 09:53 Height 5 ft 3 in Weight 198 lb 2 oz BMI 35.1 BP 136/80 Blood Pressure Location Rt brachial Position Sitting Pulse 75 Pulse Source Pulse Oximeter Pulse Oximetry (%) 97 Oxygen Delivery Method Room Air Intake Visit Reasons: 4 month follow up Intake Note: Patient presents 4 month follow up for Parkinson's Director Of Event Management Required: No Accompanied by: Self / Same As Patient Allergies No Known Allergies Allergy (Verified 01/03/25 09:58) HPI Comments Details: 84y/o Right handed male comes for follow up.He is on carbidopa/levodopa 1 1/2 tabs 25/100 qid . He feels he camacho simproved especially his gait . No side effects from carbidopa/levodopa .His voice is still softer - says trouble understanding people sometimes but khan snot wear his hearing aides.He had 1 fall last month while coming up the stairs- did not lift . . he reports vivid dreams . 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 History from initial visit- He started noticing tremors in his right hand about 1 year ago ( 2022)both at rest , posture and action . The tremors were mild initially and intermittent but has worsened in intensity since then . He also has noticed some tremors in his left hand now. He also has difficulty with his hand writing dressing using utensils, showers etc due to poor coordination. His hand writing is smaller. His speech is softer and has drooling. He denies any memory issues. He has some vivid dreams and snoring. He denies depression but has anxiety and has been using lorazepam 0.5 mg qhs to help. 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 Denies nay major head injury He was seen by and started on Primidone but felt weak and dizzy after his first dose PFSH Medical History Hx of cardiac pacemaker Anxiety GERD (gastroesophageal reflux disease) HTN (hypertension) Social History Alcohol intake: never Patient Tobacco Use Status: Never used Tobacco Physical Exam Vital Signs: Last Vital Signs Pulse 75 01/03/25 09:53 BP 136/80 01/03/25 09:53 Pulse Ox 97 01/03/25 09:53 Oxygen Delivery Method Room Air 01/03/25 09:53 BMI result Body Mass Index 35.1 Const General: cooperative, healthy appearing and comfortable Nutritional Appearance: obese Orientation/consciousness: patient oriented x3 Eyes Pupils: Equal, round and reactive pupils present Neck Neck: Yes no meningeal signs Neuro Other: MODERATE decreased facial expression and blink Speech- moderate hypophonia and dysprosod Right Ue rest tremors today Fine finger movements - moderately decreased tobin R>L Foot taps decreased tobin R>L Cog wheel rigidity Right Ue 1 + Left UE 1+ Gait- slow , normal steps decreased arm swings tobin R>L, better than last visit Mallampatti grade4- General: patient oriented x3, moves all extremities, no meningeal signs and no focal motor deficits Cranial nerves: Yes Facial sensation intact/muscles of mastication intact, Yes Equal, round and reactive pupils present, Yes Bilaterally intact EOM present, Yes Nystagmus not present, Yes Normal facial strength present, Yes Midline tongue present and Yes Symmetric palate elevation present Cognition (Neuro): normal cognition Motor exam (neuro): 5/5 motor strength present throughout Coordination: [id number] test normal Assessment & Plan Assessment & Plan (1) Parkinson's disease: Comment: Tremors, bradykinesia, rigidity, gait disturbance Code(s): G20.A1 - Parkinson's disease without dyskinesia, without mention of fluctuations Category: Medical Qualifiers: Dyskinesia presence: without dyskinesia Fluctuating manifestations: without fluctuating manifestations Qualified Code(s): G20.A1 - Parkinson's disease without dyskinesia, without mention of fluctuations Plan Continue carbidopa/levodopa 25/100 1 1/2 tab qid - will consider increasing dose next visit Declines PT and OT Patient has a pacemaker - will consider CT brain F/u 6 mths Coding Level of Care Code Est Pt Level 4 (96903) Complex EM visit Add On G2211 Diagnoses Parkinson's disease without dyskinesia or fluctuating manifestations G20.A1 Dyskinesia presence: without dyskinesia Fluctuating manifestations: without fluctuating manifestations
--- OUTSIDE RECORDS SUMMARY | 2025-01-03 10:42 | XMS_ITS | Clinical Summary ---
Author Organization [employer] [facility] Address [address] [place] [address] Care Team Providers Care Ski Lift Operator Name Role Phone Unavailable Primary Care Provider Unavailabl e Social History Tobacco Use Types Packs/Day Years Used Date Smoking Tobacco: Never Assessed Sex and Gender Information Value Date Recorded Sex Assigned at Not on file Gender Identity Not on file Sexual Orientation Not on file Plan of Treatment Not on file
--- OUTSIDE RECORDS SUMMARY | 2025-01-03 10:42 | XMS_ITS | Clinical Summary ---
Author Organization [address] [facility] Address [address] [place] [address] Phone Care Team Providers Care Learning And Development Coordinator Name Role Phone Unavailable Primary Care Provider Unavailabl e Allergies Active Allergy Reactions Criticality Noted Date Comments Lisinopril Swelling 10/17/2023 FACIAL SWELLING Medications aspirin/acetami nophen/caffeine (EXCEDRIN MIGRAINE ORAL) Take by mouth. Active IBUPROFEN ORAL Take 1 Tablet by mouth as needed. Active esomeprazole (NexIUM) [address] capsule Take 1 Cap by mouth every morning (before breakfast). 0 Active aspirin 81 mg EC tablet Take 2 Tabs by mouth daily. 3 Active folic acid/multivit-m in/lutein (CENTRUM SILVER ORAL) Take 1 Tab by mouth daily. 7 Active carbidopa-levod opa (SINEMET) 25-250 mg per tablet Take 1 tablet by mouth 3 (three) times a day. Active LORazepam (ATIVAN) 0.5 mg tablet Take 1 tablet (0.5 mg total) by mouth 1 (one) time each day if needed for anxiety. Max Daily Amount: 0.5 mg 28 tablet 5 Active traMADoL (ULTRAM) 50 mg tablet Take 1 tablet (50 mg total) by mouth 1 (one) time each day if needed for severe pain. Take 1 Tablet by mouth daily as needed for Pain for up to 28 days Max Daily Amount: 50 mg 28 tablet 5 Active LORazepam (ATIVAN) 0.5 mg tablet Take 1 tablet (0.5 mg total) by mouth 1 (one) time each day if needed for anxiety. Max Daily Amount: 0.5 mg 28 tablet 5 12/07/19 Discontinu ed(Reorder ) traMADoL (ULTRAM) 50 mg tablet Take 1 tablet (50 mg total) by mouth 1 (one) time each day if needed for severe pain. Take 1 Tablet by mouth daily as needed for Pain for up to 28 days Max Daily Amount: 50 mg 28 tablet 5 12/07/19 Discontinu ed(Reorder ) Active Problems Problem Noted Date Diagnosed Date Preoperative cardiovascular examination 09/22/19 Assessment & Plan (09/21/2024 1:04 PM EDT): Patient's cardiac problems are optimized on current medical therapy. Patient's activity level represents greater than 4 METS. Patient does not require any further testing at this time. Using the EDGAR cardiac risk assessment patient is at a 0.9% risk for perioperative myocardial infarction or cardiac arrest. Patient is at acceptable risk for the proposed surgical procedure. Parkinson's disease ([facility] V24, [facility] V28) 0 07/14/2024 Status post total left knee replacement 07/14/19 S/P placement of cardiac pacemaker 07/14/2024 Assessment & Plan (09/21/2024 1:04 PM EDT): Patient will continue with routine remote monitoring and routine visits to our device clinic. Morbid obesity with BMI of 4 0.0-44.9, adult ([facility] V24, [facility] V28) 02/25/2024 Other fatigue 02/04/2023 Second degree AV block [...] dual-chamber standard pacemaker was best. Hyperlipidemia 05/06/2022 Assessment & Plan (09/21/2024 1:04 PM EDT): Patient continues on a low-fat diet. His last LDL cholesterol on file was 124. This should be monitored annually. Murmur 01/07/2022 Overview (02/25/2024): Last Assessment & Plan: The patient does have a murmur noted on exam; this is not new as Dr. Burrell had noticed that as well in 12/2021. His echocardiogram completed 02/05/2022 showed no hemodynamically significant valve disease. We will repeat another echocardiogram given his exertional symptoms in combination with his worsening AV block. Bradycardia 01/02/2022 Assessment & Plan (09/21/2024 1:04 PM EDT): Patient with a history of first-degree heart block and intermittent second- degree heart block. Patient had a [employer] [facility] MRI compatible pacemaker implanted on 07/11/2023. Fall 01/02/2022 Right cervical radiculopathy 10/23/2018 Hypertension 01/27/2018 Assessment & Plan (09/21/2024 1:04 PM EDT): Blood pressure today 140/70. He does have home blood pressure readings which show some mild orthostasis. This is likely secondary to autonomic dysfunction given his Parkinson disease and that he is on carbidopa levodopa. He is not having any symptoms from this so I do not see any need to change his treatment at this time. We will continue to monitor his blood pressure. Primary osteoarthritis of right knee 01/27/2018 Tremor, essential 07/18/2017 Devine's esophagus 06/13/2017 Degenerative arthritis of lumbar spine 8 Nocturia 06/13/2017 First degree atrioventricular block 08/14/2016 Benign prostatic hyperplasia 07/09/2016 Asthma 01/30/2016 Insomnia 05/10/2015 Anxiety 07/29/2014 Obesity (BMI 30.0-34.9) Resolved Problems Problem Noted Date Diagnosed Date Resolved Date Activity intolerance 02/04/2023 025 Abnormal ECG 01/07/2022 09/21/2024 Overview (02/25/2024): Last Assessment & Plan: We did discuss his EKG which is abnormal. Sinus rhythm with first-degree AV block. We also noted that there is an inferior infarction pattern. He will be getting an echo, stress test and Holter which will help to further delineate these findings. Dyspnea on exertion 01/07/2022 09/22/19 25 Overview (02/25/2024): Last Assessment & Plan: I [...] as a potential cause of his symptoms. Contusion of face 01/02/2022 04/07/2024 Overview (02/25/2024): Left, abrasion Encounters Date Type Department Care Team Description 12/21/2024 3:55 PM EDT Ancillary Procedure [facility] [address] [facility] [address] [place] [phone] 10/06/2024 10:00 AM EDT Office Visit Internal Medicine - [place] [address] [facility] [address] [place] [phone] Debi Boss PA Routine physical examination (Primary Dx) from Last 3 Months Immunizations Name Administration Dates Next Due Pneumococcal conjugate 13 va lent (Prevnar 13, PCV13) 2mo and older 07/09/2016 Surgical History Surgery Date Site/Laterality Comments TOTAL KNEE ARTHROPLASTY -2016 Left PROCEDURE: HISTORICAL TOTAL KNEE REPLACE; COMMENT: [...] obesity with BMI of 4 0.0-44.9, adult ([facility] V24, [facility] V28) 06/13/2017 DX:Morbid obesity wit h BMI of 40.0-44.9, adult ([facility]) Insomnia 05/10/2015 DX:Insomnia Hypertension 01/27/2018 DX:Hypertension H/O [...] situ 11/2009 Dr Timmons, s/p BCG therapy. [facility] 04/02/2018 cystoscopy, no evidence of recurrence. Obesity (BMI 30.0-34.9) Parkinson's disease ([facility] V24, [facility] V28) Family History Medical History Relation Name [...] Sign Reading Time Taken Comments Blood Pressure 146/82 10/06/2024 9:50 AM EDT Pulse 70 10/06/2024 9:50 AM EDT Temperature 36.9 C (98.4 F) 10/06/2024 9:50 AM EDT Respiratory Rate - - Oxygen Saturation 98% 10/06/2024 9:50 AM EDT Inhaled Oxygen Concentration - - Weight 89.8 kg (198 lb) 10/06/2024 9:50 AM EDT Height 162.6 cm (5' 4 ) 10/06/2024 9:50 AM EDT Body Mass Index 33.99 10/06/2024 9:50 AM EDT Plan of Treatment Upcoming Encounters Date Type Department Care Team (Late st Contact Info) Description 01/07/2025 9:30 AM EDT Office Visit Internal Medicine - [place] [address] [facility] [address] [place] [phone] Debi Boss PA [address] [facility] [address] [place] [address] 08/08/2025 10:30 AM EDT Ancillary Procedure [facility] [address] [facility] [address] [place] [phone] Health Maintenance Due Date Last Done Comments COVID-19 Vaccine (#1) 1945 DTaP,Tdap,and Td Vaccines (1 - Tdap) 1960 Zoster Vaccines (1 of 2) 1959 RSV Immunization Adult Patients (1 - 1-dose 75+ series) 2016 Pneumococcal Vaccine: 50+ Years (2 of 2 - PPSV23) 09/03/2016 07/09/2016 Colorectal Cancer Screening: Colonoscopy 04/27/2022 04/14/2017 Social Influencers of Health Screening 04/27/2022 Depression Screening 05/19/2024 08/18/2023 Falls Risk Assessment 2024 08/18/2023 Medicare Annual Wellness Visit 2024 08/18/2023 Influenza Vaccine (#1) 2025 Hypertension/CHF/CAD Annual BMP Blood Test 09/17/2025 09/17/2024, 01/02/2024, 01/02/2024 Cholesterol Screening (Lipid Panel) 01/01/2029 01/02/2024, 01/02/2024 [...] this topic Medical Devices Implanted Type Area Die Repairer Trimmer Dies Device Identifier Shelf Expiration Date Model / Serial / Lot Abbt-St 2272 Assurity Mri(Tm) [id number] Implanted: (Quantity not on file) Cardiac Pacemaker [employer]- [employer] 2272 ASSURITY MRI(TM) / [id number] / Procedures Procedure Name Priority Date/Time Associated Diagnosis Comments CARDIAC DEVICE CHECK- REMOTE- MURJ Routine 12/21/2024 3:54 PM EDT COMPREHENSIVE METABOLIC PANEL Routine 09/17/2024 3:37 PM EDT Preop examination LIPID PANEL Routine 01/02/2024 DEPRESSION SCREENING Routine 08/18/2023 FALLS RISK ASSESSMENT Routine 08/18/2023 COLONOSCOPY Routine 04/14/2017 from Last 3 Months or Most Recently Relevant to Health Maintenance Results * Cardiac device check - Remote- MURJ (12/21/2024 3:54 PM EDT) Date Time Interrogation Session [id number] CV DEVICE CHECK Type Interrogation Session Remote Scheduled CV DEVICE CHECK Implantable Pulse Generator Die Repairer Trimmer Dies [employer] CV DEVICE CHECK Implantable Pulse Generator Type IPG CV DEVICE CHECK Implantable Pulse Generator Model 2272 Assurity MRI(TM) CV DEVICE CHECK Implantable Pulse Generator Serial Number [id number] CV DEVICE CHECK Implantable Pulse Generator Implant Date 20230711 CV DEVICE CHECK Battery Remaining Percentage 88.00 CV DEVICE CHECK Battery Remaining Longevity 106.0 CV DEVICE CHECK Battery Voltage 2.990 CV D EVICE CHECK Battery PILL MACHINE OPERATOR Trigger 2.600 CV DEVICE CHECK Battery Status Middle of Service CV DEVICE CHECK José Miguel Statistic RA Percent Paced 15.00 CV DEVICE CHECK José Miguel Statistic RV Percent Paced 99.00 CV DEVICE CHECK Atrial Tachy Statistic AT/AF [place] Percent 0.00 CV DEVICE CHECK Lead Channel Sensing Intrinsic Amplitude 4.600 CV DEVICE CHECK Lead Channel Setting Sensing Sensitivity 0.30 CV DEVICE CHECK Lead Channel Impedance Value 510 CV DEVICE CHECK Lead Channel Pacing Threshold Amplitude 0.875 CV DEVICE CHECK Lead Channel Pacing Threshold Pulse Width 0.4 CV DEVICE CHECK Lead Channel RA Pacing Threshold Date 2024-11-16 CV DEVICE CHECK Lead Channel Setting Pacing Amplitude 1.875 CV DEVICE CHECK Lead Channel Setting Pacing Pulse Width 0.4 CV DEVICE CHECK Lead Channel Sensing Intrinsic Amplitude 9.200 CV DEVICE CHECK Lead Channel Setting Sensing Sensitivity 0.50 CV DEVICE CHECK Lead Channel Impedance Value 390 CV DEVICE CHECK Lead Channel Pacing Threshold Amplitude 1.125 CV DEVICE CHECK Lead Channel Pacing Threshold Pulse Width 0.4 CV DEVICE CHECK Lead Channel RV Pacing Threshold Date 2024-11-16 CV DEVICE CHECK Lead Channel Setting Pacing Amplitude 1.375 CV DEVICE CHECK Lead Channel Setting Pacing [...] 130 CV DEVICE CHECK Date of Service 2024-12-21 CV DEVICE CHECK Anatomical Region Laterality Modality Device Interroga tion 11/16/2024 2:33 AM EDT Impressions 12/21/2024 3:47 PM EDT Normal Remote: No Events * Normal Device Function * Alerts or events: None * Battery: Battery is at 88%, 8.83 yrs * Sensing, impedance and thresholds reviewed * Programmed parameters reviewed * Presenting rhythm reviewed * Heart Rate Histograms reviewed * No significant changes noted Narrative Procedure Note Julio Kevin MD - 12/21/2024 IMPRESSION: Normal Remote: No Events * Normal Device Function * Alerts or events: None * Battery: Battery is at 88%, 8.83 yrs * Sensing, impedance and thresholds reviewed * Programmed parameters reviewed * Presenting rhythm reviewed * Heart Rate Histograms reviewed * No significant changes noted Julio Kevin MD CV IMPLANTABLE CARDIAC DEVICE PROCEDURES Final Result * Comprehensive metabolic panel (09/17/2024 3:37 PM EDT) Sodium 140 133 - 145 mmol/L LAB CHEMISTRY METHOD 09/17/2024 7:06 PM [facility] Potassium 3.7 3.5 - 5.5 mmol/L LAB CHEMISTRY METHOD 09/17/2024 7:06 PM [facility] Chloride 103 96 - 110 mmol/L LAB CHEMISTRY METHOD 09/17/2024 7:06 PM [facility] CO2 30 21 - 32 mmol/L LAB CHEMISTRY METHOD 09/17/2024 7:06 PM [facility] Anion Gap 7 3 - 11 LAB CHEMISTRY METHOD 09/17/2024 7:06 PM [facility] Glucose 94 70 - 100 mg/dL LAB CHEMISTRY METHOD 09/17/2024 7:06 PM [facility] BUN 20 5 - 25 mg/dL LAB CHEMISTRY METHOD 09/17/2024 7:06 PM [facility] Creatinine 0.91 0.70 - 1.30 mg/dL LAB CHEMISTRY METHOD 09/17/2024 7:06 PM [facility] eGFR 84 >=60 mL/min/1. 73m2 LAB CHEMISTRY METHOD 09/17/2024 7:06 PM [facility] Comment:Calculation based on the Chronic Kidney Disease Epidemiology Collaboration (CKD-EPI) equation refit without adjustment for race. BUN/Creatinine Ratio 22.0 LAB CHEMISTRY METHOD 09/17/2024 7:06 PM [facility] Calcium 9.2 8.5 - 10.5 mg/dL LAB CHEMISTRY METHOD 09/17/2024 7:06 PM [facility] AST (SGOT) 18 10 - 42 unit/L LAB CHEMISTRY METHOD 09/17/2024 7:06 PM [facility] ALT (SGPT) 13 10 - 60 unit/L LAB CHEMISTRY METHOD 09/17/2024 7:06 PM [facility] Alkaline Phosphatase 88 42 - 121 unit/L LAB CHEMISTRY METHOD 09/17/2024 7:06 PM [facility] Total Protein 7.0 6.0 - 8.0 g/dL LAB CHEMISTRY METHOD 09/17/2024 7:06 PM [facility] Albumin 3.8 3.2 - 5.0 g/dL LAB CHEMISTRY METHOD 09/17/2024 7:06 PM [facility] Total Bilirubin 0.3 0.0 - 1.4 mg/dL LAB CHEMISTRY METHOD 09/17/2024 7:06 PM [facility] Blood Venous blood specimen / Unknown Venipuncture / Unknown 09/17/2024 3:37 PM EDT 09/17/2024 3:37 PM EDT Debi OLIVARES LAB BLOOD ORDERABLES Fin al Result [facility] [address] [place] [address], [place] [phone] * (ABNORMAL) Lipid panel (01/02/2024) Pathologist [facility] LDL/HDL Ratio 4 0 - 4 Triglycerides 144 0 - 150 mg/dL Cholesterol 203(A) 0 - 200 mg/dL HDL 51 >=40 mg/dL LDL Cholesterol 124(A) 0 - 100 mg/dL Blood Venous blood specimen / Unknown [place] [facility] Provider LAB BLOOD ORDERABLES Alice l Result * Falls Risk Assessment (08/18/2023) [facility] Falls Risk Assessment abstracted [place] [facility] Provider HEALTH MAINTENANCE Final Result * Depression Screening (08/18/2023) Pathologist [facility] Depression Screening abstracted [place] [facility] Provider HEALTH MAINTENANCE Final Result * Colonoscopy (04/14/2017) Pathologist [facility] Colonoscopy no interpretation , abstracted Anatomical Region Laterality Modality Other [place] [facility] Provider HEALTH MAINTENANCE Final Result from Last 3 Months or Most Recently Relevant to Health Maintenance Insurance MEDICARE [facility] Advance Directives Documents on File Type Date Recorded Patient Aerographer Expl [facility] Care Decision (hx) 07/15/2023 AD JUAN DIRECTIVE
--- OUTSIDE RECORDS SUMMARY | 2025-01-03 10:42 | XMS_ITS ---
Author Name [facility] Organization Unknown Care Team Organization Name Specialty Phone Email Start Date End Da te [facility] Termed, PROVIDER Primary Care 06/20/202406/19 [facility] Debi Boss Primary Care 05/27/2022 07/01/2024
== END 2025-01-03 10:39 | disposition home or self-care (01) ==
LOC: HO.HSMS 09:53
PROVIDERS: PCP Internal Medicine; Visit Provider Psychiatry & Neurology Neurology
DX: G20.A1 Parkinson's disease without dyskinesia, without mention of fluctuations (principal)
CPT/HCPCS: 99214; G2211

== ENCOUNTER → 2025-01-03 09:52 | Outpatient (BNVA) | payer MEDICARE, SELFPAY | PROVIDERS: PCP Internal Medicine; Visit Provider Psychiatry & Neurology Neurology | DX: G20.A1 Parkinson's disease without dyskinesia, without mention of fluctuations (principal) | CPT/HCPCS: 99212 ==